=== PATIENT | female | born 1955 | race Caucasian/White ===

== ENCOUNTER 2018-06-08 17:07 | Observation (INO) | payer OTHER ==
[2018-06-08 17:46] LABS: Hematocrit 45 % (33-41); Hemoglobin 15.5 g/dL (12.0-16.0); Mean Corpuscular HGB Conc 34 g/dL (31-36); Mean Corpuscular Hemoglobin 31 pg (27-31); Mean Corpuscular Volume 89 fL (80-97); Mean Platelet Volume 9.5 fL (7.4-10.4); Platelet Count 198 10^3/uL (150-450); Red Blood Count 5.06 10^6 /uL (3.70-4.87); Red Cell Distribution Width 13 % (10.5-15); White Blood Count 8.8 10^3/uL (3.5-10.8)
[2018-06-08 18:03] LABS: ALT 68 U/L (7-52); AST 71 U/L (13-39); Albumin/Globulin Ratio 1.5 (1-3); Alkaline Phosphatase 157 U/L (34-104); Anion Gap 10 mmol/L (2-11); BUN/Creatinine Ratio 23.7 (8-20); Blood Urea Nitrogen 18 mg/dL (6-24); CO2 Carbon Dioxide 20 mmol/L (22-32); Calcium 8.9 mg/dL (8.6-10.3); Chloride 108 mmol/L (101-111); EGFR African American 93.9 (>60); EGFR Non-African American 77.6 (>60); Globulin 2.7 g/dL (2-4); Glucose 97 mg/dL (70-100); Potassium 3.8 mmol/L (3.5-5.0); Sodium 138 mmol/L (135-145); Total Protein 6.7 g/dL (6.4-8.9)
[2018-06-08 18:09] LABS: Troponin I 0.06 ng/mL (<0.04)
[2018-06-08 18:31] LABS: ABS Basophils 0.1 10^3/ul (0-0.2); ABS Eosinophils 0.2 10^3/ul (0-0.6); ABS Monocytes 0.8 10^3/ul (0-0.8); ABS Neutrophils 5.7 10^3/ul (1.5-7.7); ABS Nucleated RBC 0 10^3/ul; Eosinophil % 2.6 %; Lymphocyte % 22.4 %; Nucleated Red Blood Cells % 0
--- NOTE | 2018-06-08 18:34 | ED ---
Shortness of Breath - HPI Summary HPI Summary: This patient is a 62 year old F presenting to [facility] accompanied by family with a chief complaint of SOB that began approximately one month ago. The patient rates the pain 0/10 in severity. Symptoms aggravated by exertion. Symptoms alleviated by nothing. Patient reports rapid breathing while asleep, cough ( chronic), weakness, decreased appetite, constipation, dark tarry stool, dizziness, and headache. Pt denies any fever, chills, erythema of eyes, sore throat, CP, abdominal pain, N/V, dysuria, hematuria, myalgia, edema, or rash. - History of Current Complaint Chief Complaint: EDShortnessOfBreath Time Seen by Provider: 06/08/18 17:28 Hx Obtained From: Patient Onset/Duration: Sudden Onset, Lasting Weeks, Still Present Timing: Constant Current Severity: Mild Dyspnea At: Rest Aggrevating Factors: Other - Exertion Alleviating Factors: Nothing Associated Signs & Symptoms: Dizzy - Allergy/Home Medications Allergies/Adverse Reactions: Allergies Allergy/AdvReac Type Severity Reaction Status Date / Time No Known Allergies Allergy Verified 06/08/18 17:09 Home Medications: Home Medications NK [No Home Medications Reported] 06/08/18 [History Confirmed 06/08/18] PMH/Surg Hx/FS Hx/Imm Hx Previously Healthy: No Endocrine/Hematology History: Denies: Hx Diabetes Cardiovascular History: Denies: Hx Hypercholesterolemia, Hx Hypertension Opthamlomology History: Denies: Hx Legally Blind EENT History: Denies: Hx Deafness Infectious Disease History: No Infectious Disease History: Denies: Traveled Outside the [place] in Last 30 Days - Family History Known Family History: Positive: Cardiac Disease - Younger sister, Hypertension, Other - Negative DVT and PE - Social History Occupation: Employed Full-time Lives: With Family Alcohol Use: None Hx Substance Use: No Substance Use Type: Reports: None Hx Tobacco Use: Yes Smoking Status (MU): Former Smoker Review of Systems Negative: Fever, Chills Negative: Erythema Negative: Sore Throat, Ear Ache Negative: Chest Pain Positive: Shortness Of Breath, Cough, Other - Positive rapid breathing when asleep Positive: Other - Positive decreased appetite, constipation, and dark tarry stool. Negative: Abdominal Pain, Vomiting, Nausea Negative: dysuria, hematuria Negative: Myalgia, Edema Negative: Rash Neurological: Other - Positive dizziness Positive: Headache All Other Systems Reviewed And Are Negative: Yes Physical Exam - Summary Physical Exam Summary: Constitutional: Well-developed, Well-nourished, Alert. (-) Distressed Skin: Warm, Dry HENT: Normocephalic; Atraumatic Eyes: Conjunctiva normal Neck: Musculoskeletal ROM normal neck. (-) JVD, (-) Stridor, (-) Tracheal deviation Cardio: Rhythm regular, rate normal, Heart sounds normal; Intact distal pulses; The pedal pulses are 2+ and symmetric. Radial pulses are 2+ and symmetric. (-) Murmur Pulmonary/Chest wall: Effort normal. (-) Respiratory distress, (-) Wheezes, (-) Rales Abd: Soft, (-) tenderness, (-) Distension, (-) Guarding, (-) Rebound Musculoskeletal: (-) Edema Lymph: (-) Cervical adenopathy Neuro: Alert, Oriented x3 Psych: Mood and affect Normal Triage Information Reviewed: Yes Vital Signs On Initial Exam: Initial Vitals Temp Pulse Resp BP Pulse Ox 96.5 F 102 18 120/101 94 06/08/18 17:09 06/08/18 17:09 06/08/18 17:09 06/08/18 17:09 06/08/18 17:09 Vital Signs Reviewed: Yes Diagnostics - Vital Signs Vital Signs Temp Pulse Resp BP Pulse Ox 06/08/18 17:41 98 21 113/83 93 06/08/18 17:36 24 06/08/18 17:09 96.5 F 102 18 120/101 94 - Laboratory Lab Results: Lab Results 06/08/18 06/08/18 06/08/18 Range/Units 17:38 17:38 17:38 WBC 8.8 (3.5-10.8) 10^3/uL RBC 5.06 H (3.70-4.87) 10^6 /uL Hgb 15.5 (12.0-16.0) g/dL Hct 45 H (33-41) % MCV 89 (80-97) fL MCH 31 (27-31) pg MCHC 34 (31-36) g/dL RDW 13 (10.5-15) % Plt Count 198 (150-450) 10^3/uL MPV 9.5 (7.4-10.4) fL Neut % (Auto) Pending Lymph % (Auto) Pending [place] % (Auto) Pending Eos % (Auto) Pending Baso % (Auto) Pending Absolute Neuts (auto) Pending Absolute Lymphs (auto) Pending Absolute Monos (auto) Pending Absolute Eos (auto) Pending Absolute Basos (auto) Pending Absolute Nucleated RBC Pending Nucleated RBC % Pending Sodium 138 (135-145) mmol/L Potassium 3.8 (3.5-5.0) mmol/L Chloride 108 (101-111) mmol/L Carbon Dioxide 20 L (22-32) mmol/L Anion Gap 10 (2-11) mmol/L BUN 18 (6-24) mg/dL Creatinine 0.76 (0.51-0.95) mg/dL Est GFR ( Amer) 93.9 (>60) Est GFR (Non-Af Amer) 77.6 (>60) BUN/Creatinine Ratio 23.7 H (8-20) Glucose 97 (70-100) mg/dL Lactic Acid 1.0 (0.5-2.0) mmol/L Calcium 8.9 (8.6-10.3) mg/dL Total Bilirubin 0.50 (0.2-1.0) mg/dL AST 71 H (13-39) U/L ALT 68 H (7-52) U/L Alkaline Phosphatase 157 H (34-104) U/L Troponin I 0.06 H* (<0.04) ng/mL B-Natriuretic Peptide (<=100) pg/mL Total Protein 6.7 (6.4-8.9) g/dL Albumin 4.0 (3.2-5.2) g/dL Globulin 2.7 (2-4) g/dL Albumin/Globulin Ratio 1.5 (1-3) 06/08/18 Range/Units 17:38 WBC (3.5-10.8) 10^3/uL RBC (3.70-4.87) 10^6 /uL Hgb (12.0-16.0) g/dL Hct (33-41) % MCV (80-97) fL MCH (27-31) pg MCHC (31-36) g/dL RDW (10.5-15) % Plt Count (150-450) 10^3/uL MPV (7.4-10.4) fL Neut % (Auto) Lymph % (Auto) [place] % (Auto) Eos % (Auto) Baso % (Auto) Absolute Neuts (auto) Absolute Lymphs (auto) Absolute Monos (auto) Absolute Eos (auto) Absolute Basos (auto) Absolute Nucleated RBC Nucleated RBC % Sodium (135-145) mmol/L Potassium (3.5-5.0) mmol/L Chloride (101-111) mmol/L Carbon Dioxide (22-32) mmol/L Anion Gap (2-11) mmol/L BUN (6-24) mg/dL Creatinine (0.51-0.95) mg/dL Est GFR ( Amer) (>60) Est GFR (Non-Af Amer) (>60) BUN/Creatinine Ratio (8-20) Glucose (70-100) mg/dL Lactic Acid (0.5-2.0) mmol/L Calcium (8.6-10.3) mg/dL Total Bilirubin (0.2-1.0) mg/dL AST (13-39) U/L ALT (7-52) U/L Alkaline Phosphatase (34-104) U/L Troponin I (<0.04) ng/mL B-Natriuretic Peptide 368 H (<=100) pg/mL Total Protein (6.4-8.9) g/dL Albumin (3.2-5.2) g/dL Globulin (2-4) g/dL Albumin/Globulin Ratio (1-3) Result Diagrams: 06/08/18 17:38 06/08/18 17:38 Lab Statement: Any lab studies that have been ordered have been reviewed, and results considered in the medical decision making process. - Radiology Chest XR Radiology Interpretation Completed By: ED Physician Summary of Radiographic Findings: CXR reveals, per ED physician, no acute disease. - CT Chest CT CT Interpretation Completed By: ED Physician Summary of CT Findings: Chest CT reveals, per ED physician, bilateral pulmonary emboli up into the main pulmonary arteries. Pending read by radiologist. Chest CT - Radiologist CT Interpretation Completed By: Radiologist Summary of CT Findings: Chest CT reveals, per radiologist, large volume pulmonary emboli burden with associated right heart strain. ED physician has reviewed this radiology report. - EKG 1721 Cardiac Rate: Tachycardia EKG Rhythm: Sinus Rhythm - 103 BPM Summary of EKG Findings: An EKG taken at 1721 reveals sinus tachycardia at 103 BPM with TWI in V1 through V4, F wave flat in V5-V6, Q waves in V1 V2, and no STEMI. Course/Dx - Course Course Of Treatment: This patient is a 62 year old F presenting to [facility] accompanied by family with a chief complaint of SOB that began approximately one month ago. Physical Exam Findings: Nml. An EKG taken at 1721 reveals sinus tachycardia at 103 BPM with TWI in V1 through V4, F wave flat in V5-V6, Q waves in V1 V2, and no STEMI. CXR reveals, per ED physician, no acute disease. Chest CT reveals, per ED physician, bilateral pulmonary emboli up into the main pulmonary arteries. Chest CT reveals, per radiologist, large volume pulmonary emboli burden with associated right heart strain. Bloodwork obtained. In the ED course the patient was given Aspirin, heparin, and contrast. Consult with Dr. Reilly (hospitalist) at 2155. He agrees to admit the patient for further evaluation. The patient is agreeable with this plan. - Diagnoses Provider Diagnoses: SOB (shortness of breath), EKG abnormality, Pulmonary embolism - Physician Notifications Discussed Care of Patient With: Yuri Reilly Time Discussed With Above Provider: 21:55 Instructed by Provider To: Other - Consult with Dr. Reilly (hospitalist) at 2155. He agrees to admit the patient for further evaluation. - Critical Care Time Critical Care Time: 30-74 min - 45 minutes Discharge - Sign-Out/Discharge Documenting (check all that apply): Patient Departure - Admitted to [facility] Received Moderate/Deep Sedation with Procedure: No - Discharge Plan Condition: Stable Disposition: ADMITTED TO [facility] Referrals: Malissa Richards MD [Primary Care Provider] - - Attestation Statements Document Initiated by Scribe: Yes Documenting Scribe: Yennifer Camargo Provider For Whom Scribe is Documenting (Include Credential): Dr. Marques Arboleda MD Scribe Attestation: Yennifer Lin, scribed for Dr. Marques Arboleda MD on 06/08/18 at 2157. Status of Scribe Document: Ready
[2018-06-08] MEDS ORDERED: Aspirin 81 mg CHEW TAB* 81 MG TAB.CHEW PO ONE (19:01)
[2018-06-08] MEDS ORDERED: Iohexol 350* (CONTRAST) 500 ML MDV IV ONE (19:27)
[2018-06-08] MEDS ORDERED: Heparin DRIP 25,000 UNITS(*) 25,000 UNITS/500 ML BAG IV SCH (21:00)
[2018-06-08] MEDS ORDERED: Heparin VIAL(*) 5000 UNITS/ML VIAL (FIVE THOUSAND) IV PRN (21:32)
[2018-06-08 21:47] LABS: Troponin I 0.07 ng/mL (<0.04)
[2018-06-08] MEDS ORDERED: Ondansetron INJ* 2 MG/ML VIAL IV PRN (22:14)
[2018-06-08] MEDS ORDERED: Acetaminophen TAB* 325 MG PO PRN (22:14)
[2018-06-09] MEDS: NS 0.9% 1000 ML** 1,000 ML IV SCH ×2 (00:48→14:19)
--- NOTE | 2018-06-09 03:00 | HP ---
CC: Malissa Richards MD * HISTORY AND PHYSICAL: DATE OF ADMISSION: 06/08/18 PRIMARY CARE PROVIDER: Malissa Richards MD MY ATTENDING WHILE IN THE HOSPITAL: Dr. Yuri Reilly.* (DICTATED BY JUSTO RIBEIRO) CHIEF COMPLAINT: Shortness of breath x1 month. HISTORY OF PRESENT ILLNESS: Ms. Woosd is a 62-year-old female with past medical history significant only for hyperparathyroidism, status post parathyroidectomy who presents to the emergency department after approximately 1 month to 6 weeks of shortness of breath particularly with exertion that over the past week has gotten much worse. The patient states that around the same time that her symptoms began or shortly before her symptoms began after her partner went on a trip to [facility] on a train ride approximately [address] Patient since then has gone to [place] as well as [place] on prolonged plane trips and patient also has a rather sedentary office job. Patient has no history of blood clots. Patient has no chest pain. Patient is only at this able to walk several feet. This has been a significant worsening over the past week. Patient has palpitations with walking. Patient denies any swelling to her legs. No pain in her calves, no calf tenderness. No fever or chills. No recent illnesses. No changes in her meds. Patient, due to severe shortness of breath came into the emergency department today. Patient was found to have bilateral submassive PEs with signs of right heart strain on her CTA. Patient is up to date on her routine cancer screening. Patient has no family history or personal history of blood clots. Patient takes no medication at home. Patient is not any hormonal replacement therapy due to submassive pulmonary embolism. We are asked to evaluate the patient for admission to the hospital. PAST MEDICAL HISTORY: Hyperparathyroidism. PAST SURGICAL HISTORY: 1. Tonsillectomy. 2. Knee surgery. 3. Cholecystectomy. 4. Parathyroidectomy. MEDICATIONS: None. ALLERGIES: None. FAMILY HISTORY: Significant for no blood clots in any direct relatives. SOCIAL HISTORY: Patient denies tobacco abuse. Patient drinks occasional alcohol. Patient denies illicit drug use. Patient works at [email or web address] in [email or web address]. Patient is and has a domestic partner, has no children. Patient's surrogate decision makers will be her domestic partner, Josey Clarkaartilaura. REVIEW OF SYSTEMS: A 14-point review of systems was reviewed and is negative except as above in the HPI including denying recent weight loss, weight gain, bleeding diathesis. PHYSICAL EXAMINATION GENERAL: The patient is a 62-year-old female who appears today sitting comfortably in bed, in no acute distress. VITAL SIGNS: At time of evaluation, temperature 96.5, pulse rate 95, respiratory rate 22, oxygen saturation 95% on room air, blood pressure 136/90. HEENT: Head is normocephalic, atraumatic. Sclerae anicteric. No conjunctival injection. Nasal mucosa moist. Oral mucosa moist. No pharyngeal erythema, discharge, or exudate. NECK: Supple, nontender. No lymphadenopathy. No carotid bruits. No JVD. CARDIAC: Regular rate and rhythm. No clicks, murmurs, gallops, or rubs. Pulses are 2+ in the dorsalis pedis, posterior tibialis, and radial areas. RESPIRATORY: Clear to auscultation bilaterally. No wheezes, rales, or rhonchi. Good air exchange bilaterally. ABDOMEN: Soft, nontender, and nondistended. Bowel sounds present and normoactive in all 4 quadrants. No hepatosplenomegaly. No abdominal bruits auscultated. No hepatojugular reflux. GENITOURINARY: No suprapubic or CVA tenderness. SKIN: Clean, dry, and intact. No rashes. NEUROLOGIC: Cranial nerves II through XII intact. Alert and oriented x3. PSYCHIATRY: Very pleasant and cooperative. LAB DATA: White blood cell count 8.8, hemoglobin 15.5, platelet count 198. Sodium 138, potassium 3.9, chloride 109, carbon dioxide 20, anion gap 10, BUN 18 , creatinine 0.76, glucose 97, lactic acid 1.0, calcium 8.9, bilirubin 0.5, AST 71, ALT 68, alkaline phosphatase 157. Troponin I 0.06, repeat 0.07. BNP 368, protein 6.7, albumin 4.0, globulin 2.7. STUDIES: EKG shows signs of right heart strain, borderline ST segment depression, T-wave inversion across the anterior leads. Borderline right bundle branch block pattern. No previous EKG to compare. QTc of 500, rate of 103. Chest x-ray, 2 views, per my initial read shows no significant cardiopulmonary disease. Chest thoracic CTA read as large volume pulmonary emboli burden with associated right heart strain. ASSESSMENT AND PLAN: Ms. Rovelstad is a 62-year-old female with a past medical history significant only for hyperthyroidism who presents to the emergency department with 1 month of shortness of breath and with 1 week of significant worsening, who is found to have submassive burden of pulmonary emboli being admitted to the hospital for anticoagulation and further evaluation. Pulmonary embolism. Patient has a submassive pulmonary embolism. Patient has no hypotension. Patient is borderline tachycardic, not hypoxic. Patient has slightly elevated troponin, elevated BNP, elevated AST and ALT as well as alkaline phosphatase consistent with congestive hepatopathy. Patient has no objective signs of lower extremity DVT, but lower extremity Doppler will be ordered. A transthoracic echocardiogram will be ordered to assess for degree of right heart strain. Patient will not likely benefit from thrombolysis at this point. Patient has been started on heparin drip in the emergency department. This will be maintained. Patient should be transitioned to a oral medication for what I recommend to be a minimum of 3 months of anticoagulation. Patient's DVT was provoked by a long immobilization as well as patient's relative immobility and obesity. Patient is up to date on all her cancer screenings. Patient will be admitted to the floor and does not need ICU. Patient will be maintained on a slow fluids for blood pressure support. FEN. Patient will have a regular unrestricted diet and fluids as above. DVT prophylaxis. Heparin drip. Code status. The patient will be a full code. Disposition. Patient admitted to observation. TIME SPENT: Approximately 60 minutes was spent on the admission of this patient , 30 of which was spent [id number] with the patient obtaining history and physical and discussing treatment plan. The plan was discussed with my attending, Dr. Yuri Reilly and he is in agreement as well. JUSTO RIBEIRO [id number]/[facility] #: [id number] JOSE
[2018-06-09 06:32] LABS: ABS Basophils 0.1 10^3/ul (0-0.2); ABS Eosinophils 0.3 10^3/ul (0-0.6); ABS Monocytes 0.5 10^3/ul (0-0.8); ABS Neutrophils 3.8 10^3/ul (1.5-7.7); ABS Nucleated RBC 0 10^3/ul; Hematocrit 42 % (33-41); Hemoglobin 14.2 g/dL (12.0-16.0); Lymphocyte % 29.1 %; Mean Corpuscular HGB Conc 34 g/dL (31-36); Mean Corpuscular Hemoglobin 31 pg (27-31); Mean Corpuscular Volume 90 fL (80-97); Mean Platelet Volume 9.1 fL (7.4-10.4); Nucleated Red Blood Cells % 0; Platelet Count 185 10^3/uL (150-450); Red Blood Count 4.66 10^6 /uL (3.70-4.87); Red Cell Distribution Width 13 % (10.5-15); White Blood Count 6.7 10^3/uL (3.5-10.8)
[2018-06-09 06:55] LABS: Albumin 3.3 g/dL (3.2-5.2); Albumin/Globulin Ratio 1.4 (1-3); BUN/Creatinine Ratio 21.9 (8-20); Calcium 8.4 mg/dL (8.6-10.3); EGFR African American 114.5 (>60); EGFR Non-African American 94.7 (>60); Globulin 2.3 g/dL (2-4); Magnesium 1.8 mg/dL (1.9-2.7); Potassium 3.8 mmol/L (3.5-5.0); Total Bilirubin 0.6 mg/dL (0.2-1.0); Total Protein 5.6 g/dL (6.4-8.9)
--- NOTE | 2018-06-09 15:10 | ECHO ---
Patient: ROWENA MELGAR [facility] Rec#: [id number] : 1955 Date: 06/09/2018 Age: 62y Height: 165 cm / 65.0 in Weight: 113 kg / 249.1 lbs Sex: F BSA: 2.17 Room#: [facility] Admit Date#: 06/08/2018 Type: Inpatient Referring: DANNI BOOTH Reading: Luis Miguel Madrid MD [employer] Operator: Josey Barajas RDCS,RDMS CC: Malissa Richards MD Transthoracic Echocardiogram Indication: PE BP: 120/79 HR: 102 Rhythm: Tachycardia Findings History: Hyperparathyroidism Technical Comments: The study quality is fair. Left Ventricle: The left ventricular chamber size is normal. Mild concentric left ventricular hypertrophy is observed. Global left ventricular wall motion and contractility are within normal limits. There is normal left ventricular systolic function. The estimated ejection fraction is 55-60%. There is septal flattening of the interventricular septum consistent with right ventricular volume or pressure overload. There is an E to A reversal in the mitral valve flow pattern suggestive of diastolic dysfunction. Left Atrium: The left atrial chamber size is normal. Right Ventricle: The right ventricle is moderately dilated. The right ventricular global systolic function is severely reduced. Right Atrium: The right atrium is mildly dilated. Aortic Valve: The aortic valve is trileaflet. Systolic excursion of the aortic valve is normal. There is no evidence of aortic regurgitation. There is no evidence of aortic stenosis. Mitral Valve: The mitral valve leaflets appear normal. There is no evidence of mitral regurgitation. There is no evidence of mitral stenosis. Tricuspid Valve: The tricuspid valve leaflets are normal. There is mild tricuspid regurgitation. There is evidence of mild pulmonary hypertension. Pulmonic Valve: The pulmonic valve structure is not well visualized. There is no evidence of pulmonic valve thickening. There is no evidence of pulmonic regurgitation. Pericardium: There is no significant pericardial effusion. Aorta: There is no dilatation of the ascending aorta. There is no dilatation of the aortic arch. There is mild dilatation of the aortic root. Pulmonary Artery: The main pulmonary artery is not well visualized. Venous: The inferior vena cava is dilated. There is less than 50% respiratory change in the inferior vena cava dimension. Summary: There was not any prior study for comparison. Conclusions Mild concentric left ventricular hypertrophy is observed. Global left ventricular wall motion and contractility are within normal limits. The estimated ejection fraction is 55-60%. There is septal flattening of the interventricular septum consistent with right ventricular volume or pressure overload. The right ventricular global systolic function is severely reduced. The right ventricle is moderately dilated. Systolic excursion of the aortic valve is normal. There is no evidence of aortic stenosis. There is no evidence of mitral regurgitation. There is mild tricuspid regurgitation. There is evidence of mild pulmonary hypertension. Measurements Name Value Normal Range RVIDd (AP) 2D 3.8 cm (0.9 - 2.6) RVDdMajor (2D) 4.1 cm (2.2 - 4.4) RAd ISD 4CH 5.3 cm (3.4 - 4.9) RA (A4C)W 4.3 cm (2.9 - 4.6) IVSd (2D) 1.3 cm (0.6 - 1) LVPWd (2D) 1.3 cm (0.6 - 1) LVIDd (2D) 4.1 cm (3.6 - 5.4) LVIDs (2D) 2.4 cm - LV FS (2D) 42 % (25 - 45) Aortic Annulus 2.4 cm (1.4 - 2.6) Ao root diameter (2D) 3.6 cm (2.1 - 3.5) Ascending Ao 3.1 cm (2.1 - 3.4) Aortic arch 3.2 cm (1.8 - 3.4) LA dimension (AP) 2D 3.4 cm (2.3 - 3.8) LAd ISD 4CH 4.1 cm (2.9 - 5.3) LA ISD 4CH W 3.7 cm (2.5 - 4.5) Name Value Normal Range MV E-wave Vmax 0.3 m/sec - MV deceleration time 108 msec - MV A-wave Vmax 0.7 m/sec - MV E:A ratio 0.5 ratio - LV septal e' Vmax 0.06 m/sec - LV lateral e' Vmax 0.04 m/sec - LV E:e' septal ratio 5 ratio - LV E:e' lateral ratio 7 ratio - Name Value Normal Range AV Vmax 1 m/sec - AV VTI 16 cm - AV peak gradient 4 mmHg - AV mean gradient 3 mmHg - LVOT Vmax 0.6 m/sec - LVOT VTI 12 cm - LVOT peak gradient 1.4 mmHg - LVOT mean gradient 1 mmHg - SHU Vmax 0.7 m/sec - Name Value Normal Range TR Vmax 2.6 m/sec - TR peak gradient 28 mmHg - RAP 8 mmHg - RVSP 36 mmHg - IVC diameter 2.4 cm - Name Value Normal Range PV Vmax 0.6 m/sec - PV peak gradient 1.4 mmHg -
--- NOTE | 2018-06-09 15:12 | PN ---
Subjective Date of Service: 06/09/18 Interval History: No chest pain, cough. No significant subj change. Some LEY, no dyspnea at rest. Objective Active Medications: Acetaminophen (Tylenol Tab*) 650 mg PO Q6H PRN PRN Reason: FEVER/PAIN Heparin Sodium (Porcine) (Heparin Vial(*)) 0 units IV .FOR BOLUSES PRN PRN Reason: HEPARIN DRIP BOLUSES Last Admin: 06/08/18 21:47 Dose: 7,500 units Heparin Sodium/Dextrose (Heparin Drip 25,000 Units(*)) 25,000 units in 500 mls @ 0 mls/hr IV PER RATE [facility]; Protocol Stop: 06/09/18 21:00 Last Admin: 06/08/18 21:48 Dose: 4 mls/hr Ondansetron HCl (Zofran Inj*) 4 mg IV Q6H PRN PRN Reason: NAUSEA Rivaroxaban (Xarelto(*)) 15 mg PO BID [facility] Vital Signs - 8 hr 06/09/18 06/09/18 09:51 11:20 Temperature 97.9 F 97.6 F Pulse Rate 92 88 Respiratory 20 16 Rate Blood Pressure 155/88 141/98 (mmHg) O2 Sat by Pulse 96 95 Oximetry Oxygen Devices in Use Now: None Appearance: Alert, sitting up in bed. In good spirits, looks comfortable. Eyes: No Scleral Icterus Respiratory: Symmetrical Chest Expansion and Respiratory Effort, Clear to Auscultation, Clear to Percussion Cardiovascular: NL Sounds; No Murmurs; No JVD, RRR, No Edema, - Extremities: No Edema, No Clubbing, Cyanosis, - - no calf tenderness Skin: No Rash or Ulcers, No Nodules or Sclerosis, - Neurological: Alert and Oriented x 3, NL Sensation Result Diagrams: 06/09/18 05:59 06/09/18 05:59 Additional Lab and Data: Lab Results 06/08/18 06/08/18 06/08/18 Range/Units 17:38 17:38 17:38 WBC 8.8 (3.5-10.8) 10^3/uL RBC 5.06 H (3.70-4.87) 10^6 /uL Hgb 15.5 (12.0-16.0) g/dL Hct 45 H (33-41) % MCV 89 (80-97) fL MCH 31 (27-31) pg MCHC 34 (31-36) g/dL RDW 13 (10.5-15) % Plt Count 198 (150-450) 10^3/uL MPV 9.5 (7.4-10.4) fL Neut % (Auto) Pending Lymph % (Auto) Pending Jerome % (Auto) Pending Eos % (Auto) Pending Baso % (Auto) Pending Absolute Neuts (auto) Pending Absolute Lymphs (auto) Pending Absolute Monos (auto) Pending Absolute Eos (auto) Pending Absolute Basos (auto) Pending Absolute Nucleated RBC Pending Nucleated RBC % Pending Sodium 138 (135-145) mmol/L Potassium 3.8 (3.5-5.0) mmol/L Chloride 108 (101-111) mmol/L Carbon Dioxide 20 L (22-32) mmol/L Anion Gap 10 (2-11) mmol/L BUN 18 (6-24) mg/dL Creatinine 0.76 (0.51-0.95) mg/dL Est GFR ( Amer) 93.9 (>60) Est GFR (Non-Af Amer) 77.6 (>60) BUN/Creatinine Ratio 23.7 H (8-20) Glucose 97 (70-100) mg/dL Lactic Acid 1.0 (0.5-2.0) mmol/L Calcium 8.9 (8.6-10.3) mg/dL Total Bilirubin 0.50 (0.2-1.0) mg/dL AST 71 H (13-39) U/L ALT 68 H (7-52) U/L Alkaline Phosphatase 157 H (34-104) U/L Troponin I 0.06 H* (<0.04) ng/mL B-Natriuretic Peptide (<=100) pg/mL Total Protein 6.7 (6.4-8.9) g/dL Albumin 4.0 (3.2-5.2) g/dL Globulin 2.7 (2-4) g/dL Albumin/Globulin Ratio 1.5 (1-3) 06/08/18 Range/Units 17:38 WBC (3.5-10.8) 10^3/uL RBC (3.70-4.87) 10^6 /uL Hgb (12.0-16.0) g/dL Hct (33-41) % MCV (80-97) fL MCH (27-31) pg MCHC (31-36) g/dL RDW (10.5-15) % Plt Count (150-450) 10^3/uL MPV (7.4-10.4) fL Neut % (Auto) Lymph % (Auto) Jerome % (Auto) Eos % (Auto) Baso % (Auto) Absolute Neuts (auto) Absolute Lymphs (auto) Absolute Monos (auto) Absolute Eos (auto) Absolute Basos (auto) Absolute Nucleated RBC Nucleated RBC % Sodium (135-145) mmol/L Potassium (3.5-5.0) mmol/L Chloride (101-111) mmol/L Carbon Dioxide (22-32) mmol/L Anion Gap (2-11) mmol/L BUN (6-24) mg/dL Creatinine (0.51-0.95) mg/dL Est GFR ( Amer) (>60) Est GFR (Non-Af Amer) (>60) BUN/Creatinine Ratio (8-20) Glucose (70-100) mg/dL Lactic Acid (0.5-2.0) mmol/L Calcium (8.6-10.3) mg/dL Total Bilirubin (0.2-1.0) mg/dL AST (13-39) U/L ALT (7-52) U/L Alkaline Phosphatase (34-104) U/L Troponin I (<0.04) ng/mL B-Natriuretic Peptide 368 H (<=100) pg/mL Total Protein (6.4-8.9) g/dL Albumin (3.2-5.2) g/dL Globulin (2-4) g/dL Albumin/Globulin Ratio (1-3) Assess/Plan/Problems-Billing Assessment: - Patient Problems (1) Pulmonary embolism Current Visit: Yes Status: Acute Code(s): I26.99 - OTHER PULMONARY EMBOLISM WITHOUT ACUTE COR PULMONALE SNOMED Code(s): 26354627 Comment: Change to rivaroxaban 06/09 9 PM. Discharge 06/10. Fup Dr. Richards in 1 week. Note aymptomatic clot L calf. Patient advised re propylactic measures during long car or plan trips and to avoid sitting at long intervals. (2) Morbid obesity Current Visit: Yes Status: Acute Code(s): E66.01 - MORBID (SEVERE) OBESITY DUE TO EXCESS CALORIES SNOMED Code(s): 491857495 Comment: BMI 41.6.
[2018-06-09] MEDS: Rivaroxaban TAB(*) 15 MG PO SCH (21:23)
--- NOTE | 2018-06-10 02:10 | DS ---
CC: Dr. Richards * DISCHARGE SUMMARY: DATE OF ADMISSION: 06/08/18 DATE OF DISCHARGE: 06/10/18. This is being dictated in advance. HISTORY OF PRESENT ILLNESS/HOSPITAL COURSE: This 62-year-old woman presented with 6 weeks' history of increasing shortness of breath. She has had multiple trips to [facility] as well as [place]. She would drive to [place], this would take about 4 hours, train ride to [facility] is about 2 hours. She does a lot of sitting at home and is basically a sedentary person as well. She has never had trouble with clots before. There is no family history of clots either. She was found to have bilateral pulmonary emboli. Ultrasound of both legs showed an asymptomatic clot in the left leg. She was given intravenous heparin here. She did well in the hospital. Two troponin levels were 0.06 and 0.07. Her O2 saturation on room air was 95%. The patient was initially treated with intravenous heparin by infusion. At 9 p.m. on 06/09/18, she was changed to rivaroxaban 15 mg b.i.d. She was given prescription for 15 mg b.i.d. for 20 days to be followed by rivaroxaban 20 mg daily. Duration of therapy to be decided by her primary care physician. I discussed with the patient the causative elements in her pulmonary embolism, which she has no history suggestive of an occult malignancy and no family history. The causative elements would be prolonged sitting either at home and/ or long car and/or plane rides. She was advised on car rides to stop every hour and then to walk for a few minutes and to try to exercise her feet while sitting in a car or in a plane. While sitting at home, she could also get up every hour and walk a few minutes and also exercise her feet while sitting and try to avoid prolonged sitting whenever possible. FINAL DIAGNOSES: 1. Pulmonary embolism with left deep venous thrombosis. 2. Morbid obesity. DISCHARGE MEDICATIONS: 1. Acetaminophen 650 mg every 6 hours p.r.n. 2. Rivaroxaban 15 mg b.i.d. for 20 days to be followed by 20 mg daily. CONDITION ON DISCHARGE: Stable. DISPOSITION ON DISCHARGE: Discharged home. [id number]/[facility] #: [id number] [facility]ITAL[facility]
[2018-06-10 06:58] LABS: EGFR African American 121.1 (>60)
[2018-06-10 07:15] VITALS: BP 133/91
[2018-06-10] MEDS: Rivaroxaban TAB(*) 15 MG PO SCH (08:39)
== END 2018-06-10 09:40 | disposition home or self-care (01) ==
LOC: ED 17:07 → MEDTELE 22:14
PROVIDERS: ADMIT Internal Medicine; ATTEND Internal Medicine
DX: I26.99 Other pulmonary embolism without acute cor pulmonale (principal); E66.01 Morbid (severe) obesity due to excess calories; Z68.41 Body mass index [BMI] 40.0-44.9, adult; I74.3 Embolism and thrombosis of arteries of the lower extremities; I51.7 Cardiomegaly
CPT/HCPCS: 36415; 71046; 71275; 80053; 82565; 83605; 83735; 83880; 84484; 84520; 85025; 85730; 93005; 93306; 93970; 96365; 96375; 99284; A9270-GY; G0378; J1644; Q9967